=== PATIENT | female | born 1995 | race Caucasian/White ===

== ENCOUNTER 2018-01-09 09:21 | Emergency (ER) | payer OTHER ==
[~2018-01-09] VITALS: Ht 162.6 cm; Wt 56.7 kg
--- NOTE | ~2018-01-09 | EKG ---
[address] [address] ELECTROCARDIOGRAM REPORT Name: AMELIA GRAHAM [facility] [id number] Admission: 01/09/18 Attend Phys: Discharge: 01/09/18 Date of : [birth year] Report #: [id number] THIS REPORT FOR: //name// [facility] ED Test Date: 2018-01-09 Test Time: 09:57:52 Pat Name: AMELIA GRAHAM Department: Room: Gender: F Technical System Analyst: beba : 1995 Requested By: Jan Acevedo Order Number: [id number] MD: Linus Peña Measurements Intervals [place] Rate: 67 P: 81 ID: [id number] QRS: 99 QRSD: 102 T: 54 QT: 375 QTc: 396 Interpretive Statements Sinus rhythm Left atrial enlargement Borderline right axis deviation RSR' in V1 or V2, probably normal variant No previous ECG available for comparison Electronically Signed On 01-09-2018 19:22:53 [employer] by Linus Peña [email or web address] <ELECTRONICALLY SIGNED> By: Linus Peña MD 01/09/18 1922 D: 02/956 09 Linus Peña MD /SUSAN
[2018-01-09 10:14] LABS: ABSOLUTE NEUTROPHILS 7.1 thou/uL (1.4-8.2); BASOPHILS 0.9 % (0.0-2.0); HEMOGLOBIN 13.2 gm/dL (12.0-15.0); MCHC 33.8 g/dL (28.0-37.0); MCV 85.8 fL (80.0-100.0); MONOCYTES 6.4 % (1.0-8.0); PLATELET COUNT 255 thou/uL (150-400); POLYS 72.7 % (36.0-66.0); RBC 4.55 mil/uL (4.20-5.00); WBC 9.7 thou/uL (4.0-11.0)
[2018-01-09 10:19] LABS: CALCIUM 9.7 mg/dL (8.5-10.1); CREATININE 0.7 mg/dL (0.6-1.0); POTASSIUM 3.7 mmol/L (3.5-5.1)
[2018-01-09 11:02] LABS: URINE BILIRUBIN NEGATIVE (Negative); URINE BLOOD NEGATIVE (Negative); URINE CLARITY CLEAR; URINE COLOR YELLOW; URINE GLUCOSE-RANDOM* NEGATIVE (Negative); URINE KETONES NEGATIVE (Negative); URINE LEUKOCYTES-REFLEX NEGATIVE (Negative); URINE NITRITE-REFLEX NEGATIVE (Negative); URINE PROTEIN (DIPSTICK) TRACE (Negative); URINE UROBILINOGEN 0.2 E.U./dl (0.2-1.0)
[2018-01-09] MEDS ORDERED: PRENA1 CHEW TA1.4 MG PO (11:17)
== END 2018-01-09 11:35 | disposition home or self-care (01) ==
LOC: ER 09:21
PROVIDERS: Physician Assistant
DX: O9A.211 Injury, poisoning and certain other consequences of external causes complicating pregnancy, first trimester (principal); S00.93XA Contusion of unspecified part of head, initial encounter; R55 Syncope and collapse; Z3A.08 8 weeks gestation of pregnancy; W18.39XA Other fall on same level, initial encounter; Y93.89 Activity, other specified; Y92.89 Other specified places as the place of occurrence of the external cause; Y99.8 Other external cause status